=== PATIENT | male | born 1945 | race Caucasian/White ===

== ENCOUNTER → 2016-02-19 | Day surgery (SDC) | payer MEDICARE ==
[2016-02-16 14:37] VITALS: BMI 27.2
== END | disposition home or self-care (01) ==
LOC: ORWHC2ENDO 06:51
DX: D64.9 Anemia, unspecified (principal); K44.9 Diaphragmatic hernia without obstruction or gangrene; K29.70 Gastritis, unspecified, without bleeding; K29.80 Duodenitis without bleeding; K57.30 Diverticulosis of large intestine without perforation or abscess without bleeding
CPT/HCPCS: 91110

== ENCOUNTER → 2017-04-10 | Outpatient (CLI) | payer MEDICARE ==
[2017-04-10 15:00] LABS: Blood Urea Nitrogen 16 mg/dL (9-20)
--- NOTE | 2017-04-10 16:20 | CT ---
EXAMINATION TYPE: CT urogram wo/w con DATE OF EXAM: 04/10/2017 COMPARISON: NONE HISTORY: Patient complains of LLQ pain, frequent urination, and 2 recent episodes of gross hematuria. CT DLP: 3841 mGycm CONTRAST: Performed and without and with IV Contrast, patient injected with 100 mL of Visipaque 320. CT Urography was performed with unenhanced followed by enhanced images of the kidneys, ureters and ur inary bladder. Delayed images were obtained. 3d reconstruction was perfromed at a separate work sta tion. FINDINGS: KIDNEYS/BLADDER: The right kidney is absent. Right upper pole left pelvic calyceal calculus measures 9 mm. 4 mm calculus upper pole noted as well. Additional mid to upper pole calculus left kidney measu ring 6.8 mm. There is fullness of the left renal pelvis compatible with congenital or acquired left U PJ obstruction. The left ureter is of normal caliber. No distinct solid renal mass. Urinary bladder g rossly unremarkable. LUNG BASES-: No visible nodule. No infiltrate. LIVER/GB: No calcified gallstones. No solid space occupying hepatic lesion. Simple Cyst left hepat ic lobe measures 1.7 cm. Biliary tree is of normal caliber. PANCREAS: No inflammation. No distinct mass. SPLEEN: No splenic enlargement. No lesion seen. ADRENALS: No nodule. No thickening. BOWEL: There is a large fixed hiatal hernia. Normal appendix. Normal bowel caliber. No inflammation . GENITAL ORGANS: The prostate gland is enlarged and demonstrates lobulated extension into the base of the urinary bladder. LYMPH NODES: No greater than 1cm abdominal or pelvic lymph nodes are appreciated. AORTA: No significant abnormality. OSSEOUS STRUCTURES: No significant abnormality is seen. OTHER: No significant additional abnormality is seen. IMPRESSION: 1. Suspect left-sided congenital or acquired UPJ obstruction. Contrast is seen within the left ureter at 10 minutes. Nonobstructing nephrolithiasis. 2. Absence of the right kidney. 3. Large fixed hiatal hernia. 4. Prostate gland enlargement.
== END | disposition home or self-care (01) ==
LOC: RADCTMAIN 14:20
PROVIDERS: ATTEND Urology
DX: N20.0 Calculus of kidney (principal); K44.9 Diaphragmatic hernia without obstruction or gangrene; N40.0 Benign prostatic hyperplasia without lower urinary tract symptoms; Z90.5 Acquired absence of kidney
CPT/HCPCS: 82565; 84520; 74178; 36415; 74400; Q9967

== ENCOUNTER 2017-05-05 13:31 | Emergency (ER) | payer MEDICARE ==
[2017-05-05 13:46] VITALS: TEMP 98.5
[2017-05-05 16:10] LABS: Basophils % (A) 1 %; Eosinophils # (A) 0.1 k/uL (0-0.7); Eosinophils % (A) 1 %; HCT 45.8 % (39.0-53.0); HGB 14.9 gm/dL (13.0-17.5); Lymphocytes # (A) 0.8 k/uL (1.0-4.8); Lymphocytes % (A) 12 %; MCH 31.8 pg (25.0-35.0); MCHC 32.4 g/dL (31.0-37.0); MCV 98.1 fL (80.0-100.0); Mean Platelet Volume 7.4; Monocytes # (A) 0.4 k/uL (0-1.0); Monocytes % (A) 6 %; Neutrophils # (A) 5.2 k/uL (1.3-7.7); Neutrophils % (A) 79 %; Platelet Count 197 k/uL (150-450); RBC 4.67 m/uL (4.30-5.90); RDW 13.1 % (11.5-15.5); WBC 6.6 k/uL (3.8-10.6)
[2017-05-05 16:22] LABS: ALT 49 U/L (21-72); AST 34 U/L (17-59); Albumin 4.6 g/dL (3.5-5.0); Alkaline Phosphatase 121 U/L (38-126); Amylase 90 U/L (30-110); Anion Gap 16 mmol/L; Appearance,Urine Cloudy (Clear); Bacteria,Urine Rare /hpf; Bilirubin,Urine Negative (Negative); Blood Urea Nitrogen 15 mg/dL (9-20); Blood,Urine Moderate (Negative); Calcium 9.8 mg/dL (8.4-10.2); Carbon Dioxide 25 mmol/L (22-30); Chloride 103 mmol/L (98-107); Color,Urine Yellow; Glucose 94 mg/dL (74-99); Glucose,Urine (UA) Negative (Negative); Ketones,Urine Negative (Negative); Leukocyte Esterase,Urine Trace (Negative); Lipase 107 U/L (23-300); Mucus,Urine Occasional /hpf; Nitrite,Urine Negative (Negative); PH, Urine 5.5 (5.0-8.0); Protein,Urine 1+ (Negative); RBC,Urine >182 /hpf (0-5); Sodium 144 mmol/L (137-145); Specific Gravity,Urine 1.021 (1.001-1.035); Total Bilirubin 0.7 mg/dL (0.2-1.3); Total Protein 7.6 g/dL (6.3-8.2); Urobilinogen,Urine <2.0 mg/dL (<2.0); WBC,Urine 17 /hpf (0-5)
[2017-05-05] MEDS ORDERED: IOPAMIDOL-300 CONTRAST 30 ML VIAL (ORAL USE) PO PRN (17:19)
[2017-05-05] MEDS ORDERED: RX INFO: IV CONTRAST WAS GIVEN 1 EACH MISC MISCELLANE PRN (17:19)
[2017-05-05 17:31] VITALS: RESP 16
--- NOTE | 2017-05-05 17:41 | ED ---
Abdominal Pain HPI - General Chief Complaint: Abdominal Pain Stated Complaint: bowel obstruction-sent by PCP Time Seen by Provider: 05/05/17 16:43 Source: patient Mode of arrival: ambulatory Limitations: no limitations - History of Present Illness Initial Comments: 8-year-old male presenting with abdominal pain. Patient states for the past one month he has had left lower quadrant nonradiating intermittent abdominal pain. He states it is sporadic, is not alleviated or exacerbated by anything. Patient states he had some blood in his urine has been evaluated by urologist. He states he had a cystoscopy done which showed 2 areas in his bladder that need biopsy. He states the last week has been unable to have a bowel movement. He states he has seen his primary care physician for this and has tried MiraLAX and magnesium citrate without significant relief. Patient states he is still passing gas and able to tolerate by mouth without any emesis. Patient denies any fevers or chills. Denies any chest pain or shortness of breath. - Related Data Home Medications Medication Instructions Recorded Confirmed Fexofenadine HCl [Angela Allergy] 180 mg PO DAILY 12/14/13 05/05/17 Cholecalciferol [Vitamin D3] 1,000 unit PO DAILY 01/29/16 05/05/17 Metoprolol Tartrate [Lopressor] 12.5 mg PO BID 01/29/16 05/05/17 Ubidecarenone [Co Q-10] 100 mg PO HS 01/29/16 05/05/17 Clopidogrel Bisulfate [Plavix] 75 mg PO HS 05/05/17 05/05/17 Previous Rx's Medication Instructions Recorded Atorvastatin [Lipitor] 80 mg PO HS #30 tab 08/04/13 Lisinopril [Zestril] 2.5 mg PO DAILY #30 tab 08/04/13 Bisacodyl [Dulcolax] 10 mg RECTAL DAILY PRN #10 supp 05/05/17 MDD 1 Dicyclomine [Bentyl] 10 mg PO TID PRN #10 capsule 05/05/17 Allergies Allergy/AdvReac Type Severity Reaction Status Date / Time prednisone AdvReac Rapid Verified 05/05/17 16:39 Heart Rate HAYFEVER AdvReac NASAL Uncoded 05/05/17 13:46 CONGESTION Review of Systems ROS Statement: Those systems with pertinent positive or pertinent negative responses have been documented in the HPI. Review of Systems Constitutional: Denies fever, chills Eyes: Denies change in vision, Denies pain Ears, nose, mouth, throat: Denies headaches, Denies sore throat Cardiovascular: Denies chest pain. Denies palpitations Respiratory: Denies shortness of breath, Denies cough Gastrointestinal: Positive abdominal pain. Positive constipation. Denies nausea , vomiting, diarrhea. Genitourinary: Denies hematuria, Denies infections Musculoskeletal: Denies pain, Denies swelling Integumentary: Denies rash Neurological: Denies headache, focal weakness, focal numbness Psychiatric: Denies anxiety, Denies depression Hematologic/Lymphatic: Denies easy bleeding or bruising ROS Other: All systems not noted in ROS Statement are negative. Past Medical History Past Medical History: Coronary Artery Disease (CAD), Chest Pain / Angina, GERD/ Reflux, Hearing Disorder / Deafness, Hyperlipidemia, Hypertension, Myocardial Infarction ([place]) Additional Past Medical History / Comment(s): ANEMIA, SCOPES NL 09/2013. 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 Last Myocardial Infarction Date:: 07/31/2013 History of Any Multi-Drug Resistant Organisms: None Reported Past Surgical History: Heart Catheterization With Stent, Hernia Repair, Tonsillectomy Additional Past Surgical History / Comment(s): kidney removal - rt; COLONOSCOPY , EGD. Past Anesthesia/Blood Transfusion Reactions: No Reported Reaction Additional Past Anesthesia/Blood Transfusion Reaction / Comment(s): no h/x of blood transfusion Date of Last Stent Placement:: 09/2013 Past Psychological History: No Psychological Hx Reported Smoking Status: Never smoker Past Alcohol Use History: None Reported Past Drug Use History: None Reported - Past Family History Father Family Medical History: Myocardial Infarction ([place]) Additional Family Medical History / Comment(s): dad - late 50's early 60's cabg X 4; mom had left carotid done, silent [place]'s Mother Family Medical History: Chest Pain / Angina, CVA/TIA, Myocardial Infarction ([place]) General Exam - General Exam Comments Initial Comments: General: Awake, alert, No acute Distress HENT: Normocephalic. Atraumatic Eyes: PERRL. EOMI. No scleral icterus. No injected conjunctiva Neck: Full ROM Chest/Lungs: Clear to auscultation bilaterally. No wheezing, rhonchi, or rales Cardiac: Regular rate, rhythm. No murmurs or rubs. No abdominal bruit. Abdomen/GI: [Soft, nontender, nondistended. No rebound, guarding, or rigidity. Musculoskeletal: Full ROM Skin: Warm, dry, intact Neurologic: A/Ox3, no weakness, no sensory deficit, no abdnormal gait, no coordination deficit Limitations: no limitations Course Vital Signs 05/05/17 05/05/17 05/05/17 13:42 17:29 18:51 Temperature 98.5 F Pulse Rate 69 60 61 Respiratory 18 16 16 Rate Blood Pressure 145/83 144/81 153/78 O2 Sat by Pulse 96 98 98 Oximetry 05/05/17 19:21 Temperature Pulse Rate 66 Respiratory 16 Rate Blood Pressure 144/86 O2 Sat by Pulse 98 Oximetry Medical Decision Making - Medical Decision Making 71-year-old male presenting with abdominal pain and constipation. An initial exam the patient is awake, alert, no acute distress. VSS. Patient is well- appearing nontoxic in his abdomen is nontender and nonperitoneal. Patient's hematuria seen in his UA is consistent with his chronic hematuria for which she is seeing a urologist. He recently had a CT urogram which showed bilateral nephrolithiasis. He is currently not having any flank pain. [address] abdomen showed no evidence of obstruction, diverticulitis, or appendicitis. Patient is in no abdominal pain. At this time the patient is stable for outpatient follow up with his blood typer for his sensation of constipation. Patient was offered a duplex suppository prescription as well as Bentyl for her gas and bloating that he has been experiencing. No further emergent workup is indicated at this time. - Lab Data Result diagrams: 05/05/17 15:55 05/05/17 15:55 Lab Results 05/05/17 05/05/17 05/05/17 Range/Units 15:55 15:55 15:55 WBC 6.6 (3.8-10.6) k/uL RBC 4.67 (4.30-5.90) m/uL Hgb 14.9 (13.0-17.5) gm/dL Hct 45.8 (39.0-53.0) % MCV 98.1 (80.0-100.0) fL MCH 31.8 (25.0-35.0) pg MCHC 32.4 (31.0-37.0) g/dL RDW 13.1 (11.5-15.5) % Plt Count 197 (150-450) k/uL Neutrophils % 79 % Lymphocytes % 12 % Monocytes % 6 % Eosinophils % 1 % Basophils % 1 % Neutrophils # 5.2 (1.3-7.7) k/uL Lymphocytes # 0.8 L (1.0-4.8) k/uL Monocytes # 0.4 (0-1.0) k/uL Eosinophils # 0.1 (0-0.7) k/uL Basophils # 0.0 (0-0.2) k/uL Sodium 144 (137-145) mmol/L Potassium 5.0 (3.5-5.1) mmol/L Chloride 103 (98-107) mmol/L Carbon Dioxide 25 (22-30) mmol/L Anion Gap 16 mmol/L BUN 15 (9-20) mg/dL Creatinine 0.90 (0.66-1.25) mg/dL Est GFR (CKD-EPI)AfAm >90 (>60 ml/min/1.73 sqM) Est GFR (CKD-EPI)NonAf 86 (>60 ml/min/1.73 sqM) Glucose 94 (74-99) mg/dL Calcium 9.8 (8.4-10.2) mg/dL Total Bilirubin 0.7 (0.2-1.3) mg/dL AST 34 (17-59) U/L ALT 49 (21-72) U/L Alkaline Phosphatase 121 (38-126) U/L Total Protein 7.6 (6.3-8.2) g/dL Albumin 4.6 (3.5-5.0) g/dL Amylase 90 (30-110) U/L Lipase 107 (23-300) U/L Urine Color Yellow Urine Appearance Cloudy (Clear) Urine pH 5.5 (5.0-8.0) Ur Specific [place] 1.021 (1.001-1.035) Urine Protein 1+ H (Negative) Urine Glucose (UA) Negative (Negative) Urine Ketones Negative (Negative) Urine Blood Moderate H (Negative) Urine Nitrite Negative (Negative) Urine Bilirubin Negative (Negative) Urine Urobilinogen <2.0 (<2.0) mg/dL Ur Leukocyte Esterase Trace H (Negative) Urine RBC >182 H (0-5) /hpf Urine WBC 17 H (0-5) /hpf Urine Bacteria Rare H (None) /hpf Urine Mucus Occasional H (None) /hpf Disposition Clinical Impression: Constipation, Abdominal pain Disposition: HOME SELF-CARE Condition: Good Instructions: Abdominal Pain (ED), Constipation (ED), High Fiber Diet (ED) Prescriptions: Bisacodyl [Dulcolax] 10 mg RECTAL DAILY PRN #10 supp MDD 1 PRN Reason: Constipation Dicyclomine [Bentyl] 10 mg PO TID PRN #10 capsule PRN Reason: Bloating Referrals: Jimenez Small MD [Primary Care Provider] - 1-2 days
[2017-05-05 19:23] VITALS: BP 144/86; PULSE 66
--- NOTE | 2017-05-05 19:39 | CT ---
EXAMINATION TYPE: CT abdomen pelvis wo con DATE OF EXAM: 05/05/2017 COMPARISON: 04/10/2017 HISTORY: Generalized abdominal pain, constipation, and nausea. CT DLP: 1059 mGycm Automated exposure control for dose reduction was used. TECHNIQUE: Helical acquisition of images was performed from the lung bases through the pelvis. FINDINGS: There is oral contrast. There is a large hiatal hernia with fluid level. There is no pleural effusion . There is no pericardial effusion. There is atherosclerotic calcification in the coronary arteries. There is a 1 cm cyst in the left lobe of the liver. Bile ducts are not dilated. Gallbladder is somewh at contracted. There is no pancreatic mass. Spleen appears normal. There is no adrenal mass. Right kidney is absent. Left kidney shows multiple calculi. There is left-s ided hydronephrosis. Left ureter is not dilated. I see no ureteral calculus. Prostate is enlarged. Bl adder otherwise distends smoothly. I see no intestinal wall thickening. There are no dilated loops. A ppendix appears normal. There are a few sigmoid diverticula. There is no evidence of diverticulitis. There is no sign of free air. There is no ascites. I see no bony destructive process. There is bilate ral L5 spondylolysis without spondylolisthesis. There is a 1 cm calculus in the posterior left renal pelvis. IMPRESSION: CHRONIC LEFT-SIDED HYDRONEPHROSIS WITHOUT CHANGE COMPARED TO LAST EXAM. I DO NOT SUSPECT OBSTRUCTION. MULTIPLE LEFT RENAL CALCULI. NORMAL APPENDIX. LARGE HIATAL HERNIA. MILD SIGMOID DIVERTICULOSIS. ENLA RGED PROSTATE. NO SIGNIFICANT CHANGE COMPARED TO OLD EXAM.
== END 2017-05-05 20:10 | disposition home or self-care (01) ==
LOC: EC 13:31
DX: K59.00 Constipation, unspecified (principal); N20.0 Calculus of kidney; I25.10 Atherosclerotic heart disease of native coronary artery without angina pectoris; H91.90 Unspecified hearing loss, unspecified ear; E78.5 Hyperlipidemia, unspecified; I10 Essential (primary) hypertension; I25.2 Old myocardial infarction; Z79.02 Long term (current) use of antithrombotics/antiplatelets; Z79.899 Other long term (current) drug therapy; Z88.8 Allergy status to other drugs, medicaments and biological substances
CPT/HCPCS: 36415; 74176; 80053; 81001; 82150; 83690; 85025; 99284

== ENCOUNTER → 2017-05-30 | Outpatient (CLI) | payer MEDICARE ==
--- NOTE | 2017-05-30 15:13 | XR ---
EXAMINATION TYPE: XR abdomen 1V DATE OF EXAM: 05/30/2017 2:59 PM CLINICAL HISTORY: Left-sided renal calculi, gross hematuria. TECHNIQUE: Two supine KUB images of the abdomen are obtained. COMPARISON: Most recent CT May 05, 2017 FINDINGS: There is redemonstration of round 8 mm calculus centrally left kidney correlates with colle cting system calculus on CT. There is smaller 3 mm calculus superior and lateral to this redemonstrat ed. Additional [address] upper pole level coronal image 66 is not clearly identified. Right kidney is not visualized on CT and is either surgically or congenitally absent. Lobulated density ri ght L4-L5 levels is of uncertain etiology, not clearly identified on CT. There is overall nonobstructive bowel gas pattern. Mild to moderate axial joint space loss in both hi ps is redemonstrated. IMPRESSION: Stable round 8 mm calculus left kidney collecting system.
== END ==
LOC: RADXRMAIN 14:51
PROVIDERS: ATTEND Urology
DX: N20.0 Calculus of kidney (principal); R31.0 Gross hematuria
CPT/HCPCS: 74018

== ENCOUNTER → 2018-09-17 | Outpatient (CLI) | payer MEDICARE ==
--- NOTE | 2018-09-17 14:22 | US ---
EXAMINATION TYPE: US carotid duplex BILAT DATE OF EXAM: 09/17/2018 COMPARISON: NONE CLINICAL HISTORY: I65.23 MICHAEL CAROTID ARTERY OCCLUSION. Stenosis EXAM MEASUREMENTS: RIGHT: Peak Systolic Velocity (PSV) cm/sec ----- Right CCA: 76.4 ----- Right ICA: 82.6 ----- Right ECA: 108.6 ICA/CCA ratio: 1.1 RIGHT: End Diastole cm/sec ----- Right CCA: 22.3 ----- Right ICA: 25.0 ----- Right ECA: 16.2 LEFT: Peak Systolic Velocity (PSV) cm/sec ----- Left CCA: 106.1 ----- Left ICA: 97.3 ----- Left ECA: 95.7 ICA/CCA ratio: 0.9 LEFT: End Diastole cm/sec ----- Left CCA: 29.9 ----- Left ICA: 29.4 ----- Left ECA: 12.3 VERTEBRALS (direction of flow): Right Vertebral: Antegrade Left Vertebral: Antegrade Rhythm: Normal Grayscale images show no significant focal plaque. Velocity measurements and ratios are within normal limits bilaterally. IMPRESSION: No hemodynamically significant stenosis is seen in either internal carotid artery. Criteria for Assigning % of Stenosis / Diameter reduction (Estimation based on the indirect measurements of the internal carotid artery velocities (ICA PSV). 1. Normal (no stenosis)=ICA PSV < 125 cm/s: ratio < 2.0: ICA EDV<40 cm/s. 2. Less than 50% stenosis=ICA PSV < 125 cm/s: ratio < 2.0: ICA EDV<40 cm/s. 3. 50 to 69% stenosis=ICA PSV of 125 to 230 cm/s: ration 2.0 ? 4.0: ICA EDV 40-100 cm/s. 4. Greater than 70% stenosis to near occlusion= ICA PSV > 230 cm/s: ratio > 4.0: ICA EDV > 100 cm/s. 5. Near occlusion= ICA PSV velocities may be low or undetectable: variable ratio and ICA EDV. 6. Total occlusion=unable to detect flow.
== END | disposition home or self-care (01) ==
LOC: RADUSWWP 13:37
PROVIDERS: ATTEND Family Medicine
DX: I65.23 Occlusion and stenosis of bilateral carotid arteries (principal)
CPT/HCPCS: 93880

== ENCOUNTER → 2019-06-24 | Outpatient (CLI) | payer MEDICARE ==
--- NOTE | 2019-06-24 09:32 | US ---
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 History of bladder cancer, righ t kidney surgically absent x70 years ago EXAM MEASUREMENTS: Right Kidney: Surgically absent Left Kidney: 13.2 x 6.3 x 5.7 cm Right Kidney: Surgically absent Left Kidney: There is left nephrolithiasis. Probable extrarenal pelvis on the left versus UPJ partial obstruction. Echogenic foci measuring 0.6 cm upper pole Bladder: wnl as visualized Bilateral Jets seen: No IMPRESSION: Single kidney. Left nephrolithiasis and additional findings above.
== END | disposition home or self-care (01) ==
LOC: RADUSWWP 08:25
PROVIDERS: ATTEND Urology
DX: N20.0 Calculus of kidney (principal); Z90.5 Acquired absence of kidney; C67.2 Malignant neoplasm of lateral wall of bladder; R31.21 Asymptomatic microscopic hematuria
CPT/HCPCS: 76770

== ENCOUNTER 2019-11-24 12:37 | Emergency (ER) | payer MEDICARE ==
[2019-11-24 12:47] VITALS: PULSE 61; TEMP 98.4
--- NOTE | 2019-11-24 12:56 | ED ---
Abdominal Pain HPI - General Chief Complaint: Abdominal Pain Stated Complaint: DR Requested to be seen in EMS Time Seen by Provider: 11/24/19 12:55 Source: patient Mode of arrival: ambulatory Limitations: no limitations - History of Present Illness Initial Comments: Patient is a 74-year-old male presenting to emergency department with a chief complaint of constipation. Patient states he has been having constipation for approximately one month. States she has been having very tiny bowel movements. He does report some abdominal bloating. He is passing flatus period. He does report taking magnesium citrate it was prescribed a primary care physician. He also took MiraLAX with no improvement in symptoms. States that he was advised by his primary care physician today be evaluated in the emergency department.. He denies any night sweats or chills. Denies any nausea or vomiting. - Related Data Home Medications Medication Instructions Recorded Confirmed Fexofenadine HCl [Angela Allergy] 180 mg PO DAILY 12/14/13 05/05/17 Cholecalciferol [Vitamin D3] 1,000 unit PO DAILY 01/29/16 05/05/17 Metoprolol Tartrate [Lopressor] 12.5 mg PO BID 01/29/16 05/05/17 Ubidecarenone [Co Q-10] 100 mg PO HS 01/29/16 05/05/17 Clopidogrel Bisulfate [Plavix] 75 mg PO HS 05/05/17 05/05/17 Previous Rx's Medication Instructions Recorded Atorvastatin [Lipitor] 80 mg PO HS #30 tab 08/04/13 lisinopriL [Zestril] 2.5 mg PO DAILY #30 tab 08/04/13 Dicyclomine [Bentyl] 10 mg PO TID PRN #10 capsule 05/05/17 bisacodyL [Dulcolax] 10 mg RECTAL DAILY PRN #10 supp 05/05/17 MDD 1 Allergies Allergy/AdvReac Type Severity Reaction Status Date / Time prednisone AdvReac Rapid Verified 05/05/17 16:39 Heart Rate HAYFEVER AdvReac NASAL Uncoded 05/05/17 13:46 CONGESTION Review of Systems ROS Statement: Those systems with pertinent positive or pertinent negative responses have been documented in the HPI. ROS Other: All systems not noted in ROS Statement are negative. Past Medical History Past Medical History: Coronary Artery Disease (CAD), Cancer, Chest Pain / Angina, GERD/Reflux, Hearing Disorder / Deafness, Hyperlipidemia, Hypertension, Myocardial Infarction ([place]) Additional Past Medical History / Comment(s): ANEMIA, SCOPES NL 09/2013. hiatal hernia; hard of hearing; right kidney removed at age 22 months; [place] 07/31/13; cardiac stents X2 placed 07/31/13, X3 09/2013; KIDNEY STONES. Bladder CA 2018 Last Myocardial Infarction Date:: 07/31/2013 History of Any Multi-Drug Resistant Organisms: None Reported Past Surgical History: Heart Catheterization With Stent, Hernia Repair, Tonsillectomy Additional Past Surgical History / Comment(s): kidney removal - rt at 22 months old; COLONOSCOPY, EGD. Past Anesthesia/Blood Transfusion Reactions: No Reported Reaction Additional Past Anesthesia/Blood Transfusion Reaction / Comment(s): no h/x of blood transfusion Date of Last Stent Placement:: 09/2013 Past Psychological History: No Psychological Hx Reported Smoking Status: Never smoker Past Alcohol Use History: None Reported Past Drug Use History: None Reported - Past Family History Father Family Medical History: Myocardial Infarction ([place]) Additional Family Medical History / Comment(s): dad - late 50's early 60's cabg X 4; mom had left carotid done, silent CT's Mother Family Medical History: Chest Pain / Angina, CVA/TIA, Myocardial Infarction ([place]) General Exam Limitations: no limitations General appearance: alert, in no apparent distress Head exam: Present: atraumatic, normocephalic, normal inspection Eye exam: Present: normal appearance, PERRL, EOMI Pupils: Present: normal accommodation ENT exam: Present: normal exam, normal oropharynx, mucous membranes moist Neck exam: Present: normal inspection, full ROM. Absent: tenderness Respiratory exam: Present: normal lung sounds bilaterally. Absent: respiratory distress, wheezes, rales Cardiovascular Exam: Present: regular rate, normal rhythm, normal heart sounds GI/Abdominal exam: Present: soft, tenderness (Mild, diffuse), normal bowel sounds. Absent: distended, guarding, rebound, rigid Extremities exam: Present: normal inspection, full ROM, normal capillary refill, other (+2 ulnar and radial pulses bilaterally.). Absent: tenderness, pedal edema, joint swelling, calf tenderness Back exam: Present: normal inspection, full ROM. Absent: tenderness, CVA tenderness (R), CVA tenderness (L) Neurological exam: Present: alert, oriented X3, normal gait Psychiatric exam: Present: normal affect, normal mood Skin exam: Present: warm, dry, intact, normal color Course Vital Signs 11/24/19 11/24/19 12:41 16:08 Temperature 98.4 F Pulse Rate 61 61 Respiratory 18 16 Rate Blood Pressure 142/80 124/74 O2 Sat by Pulse 98 99 Oximetry Medical Decision Making - Medical Decision Making Patient is 74-year-old male presenting to emergency Department with a chief complaint of constipation. On physical examination, patient has minimal abdominal tenderness. No nausea or vomiting. CBC CMP UA are unremarkable. KUB reveals nonspecific gas pattern with normal stool [place]. Patient was given milk of molasses enema. He had a moderate size bowel movement and states he does feel better. Strict return parameters were thoroughly discussed the patient was understanding and agreeable. Case discussed with physician. - Lab Data Result diagrams: 11/24/19 13:32 11/24/19 13:32 Lab Results 11/24/19 11/24/19 11/24/19 Range/Units 13:32 13:32 14:08 WBC 5.3 (3.8-10.6) k/uL RBC 4.15 L (4.30-5.90) m/uL Hgb 14.2 (13.0-17.5) gm/dL Hct 42.4 (39.0-53.0) % MCV 102.2 H (80.0-100.0) fL MCH 34.3 (25.0-35.0) pg MCHC 33.6 (31.0-37.0) g/dL RDW 13.2 (11.5-15.5) % Plt Count 199 (150-450) k/uL Neutrophils % 81 % Lymphocytes % 11 % Monocytes % 5 % Eosinophils % 1 % Basophils % 1 % Neutrophils # 4.3 (1.3-7.7) k/uL Lymphocytes # 0.6 L (1.0-4.8) k/uL Monocytes # 0.3 (0-1.0) k/uL Eosinophils # 0.1 (0-0.7) k/uL Basophils # 0.0 (0-0.2) k/uL Macrocytosis Slight Sodium 139 (137-145) mmol/L Potassium 4.4 (3.5-5.1) mmol/L Chloride 107 (98-107) mmol/L Carbon Dioxide 24 (22-30) mmol/L Anion Gap 8 mmol/L BUN 9 (9-20) mg/dL Creatinine 0.89 (0.66-1.25) mg/dL Est GFR (CKD-EPI)AfAm >90 (>60 ml/min/1.73 sqM) Est GFR (CKD-EPI)NonAf 85 (>60 ml/min/1.73 sqM) Glucose 152 H (74-99) mg/dL Calcium 9.1 (8.4-10.2) mg/dL Total Bilirubin 0.6 (0.2-1.3) mg/dL AST 24 (17-59) U/L ALT 18 (4-49) U/L Alkaline Phosphatase 114 (38-126) U/L Total Protein 7.0 (6.3-8.2) g/dL Albumin 4.1 (3.5-5.0) g/dL Urine Color Yellow Urine Appearance Clear (Clear) Urine pH 6.0 (5.0-8.0) Ur Specific [place] 1.019 (1.001-1.035) Urine Protein Negative (Negative) Urine Glucose (UA) Negative (Negative) Urine Ketones Negative (Negative) Urine Blood Negative (Negative) Urine Nitrite Negative (Negative) Urine Bilirubin Negative (Negative) Urine Urobilinogen 2.0 (<2.0) mg/dL Ur Leukocyte Esterase Negative (Negative) Disposition Clinical Impression: Constipation Disposition: HOME SELF-CARE Condition: Stable Instructions (If sedation given, give patient instructions): Constipation (DC) Additional Instructions: Follow-up with her primary care physician. Return to emergency department if symptoms worsen. Continue your appointment with a GI specialist. Is patient prescribed a controlled substance at d/c from ED?: No Referrals: Jimenez Small MD [Primary Care Provider] - 1-2 days Time of Disposition: 16:18
[2019-11-24] MEDS ORDERED: SODIUM CHLORIDE 0.9% 1,000 ML IV STA (12:59)
[2019-11-24 13:43] LABS: Basophils % (A) 1 %; Eosinophils # (A) 0.1 k/uL (0-0.7); Eosinophils % (A) 1 %; HCT 42.4 % (39.0-53.0); HGB 14.2 gm/dL (13.0-17.5); Lymphocytes # (A) 0.6 k/uL (1.0-4.8); Lymphocytes % (A) 11 %; MCH 34.3 pg (25.0-35.0); MCHC 33.6 g/dL (31.0-37.0); MCV 102.2 fL (80.0-100.0); Macrocytosis Slight; Monocytes # (A) 0.3 k/uL (0-1.0); Monocytes % (A) 5 %; Neutrophils # (A) 4.3 k/uL (1.3-7.7); Neutrophils % (A) 81 %; Platelet Count 199 k/uL (150-450); RBC 4.15 m/uL (4.30-5.90); RDW 13.2 % (11.5-15.5); WBC 5.3 k/uL (3.8-10.6)
[2019-11-24 13:52] LABS: ALT 18 U/L (4-49); AST 24 U/L (17-59); African American GFR (CKD) >90 (>60 ml/min/1.73 sqM); Albumin 4.1 g/dL (3.5-5.0); Alkaline Phosphatase 114 U/L (38-126); Anion Gap 8 mmol/L; Blood Urea Nitrogen 9 mg/dL (9-20); Calcium 9.1 mg/dL (8.4-10.2); Carbon Dioxide 24 mmol/L (22-30); Chloride 107 mmol/L (98-107); Glucose 152 mg/dL (74-99); Non-African American GFR(CKD) 85 (>60 ml/min/1.73 sqM); Potassium 4.4 mmol/L (3.5-5.1); Sodium 139 mmol/L (137-145); Total Bilirubin 0.6 mg/dL (0.2-1.3)
--- NOTE | 2019-11-24 13:54 | XR ---
EXAMINATION TYPE: XR KUB DATE OF EXAM: 11/24/2019 1:40 PM CLINICAL HISTORY: Abdominal pain and constipation TECHNIQUE: Upright images of the abdomen and pelvis were obtained COMPARISON: 11/02/[address] abdomen pelvis 05/05/2017. FINDINGS: Nonspecific bowel gas pattern. Normal stool burden. Hiatal hernia. No pneumoperitoneum or v isceromegaly. There are calcifications overlying the left renal lower pole measuring 14 x 15 mm and 1 4 x 7 mm. Degenerative changes of the spine. IMPRESSION: 1. Nonspecific bowel gas pattern. Normal stool burden. 2. Hiatal hernia. 3. Left renal calculi.
[2019-11-24 14:24] LABS: Appearance,Urine Clear (Clear); Bilirubin,Urine Negative (Negative); Blood,Urine Negative (Negative); Color,Urine Yellow; Glucose,Urine (UA) Negative (Negative); Ketones,Urine Negative (Negative); Leukocyte Esterase,Urine Negative (Negative); Nitrite,Urine Negative (Negative); Protein,Urine Negative (Negative); Specific Gravity,Urine 1.019 (1.001-1.035)
[2019-11-24 16:08] VITALS: BP 124/74; RESP 16
== END 2019-11-24 16:39 | disposition home or self-care (01) ==
LOC: EC 12:37
DX: K59.00 Constipation, unspecified (principal); I25.119 Atherosclerotic heart disease of native coronary artery with unspecified angina pectoris; I10 Essential (primary) hypertension; I25.2 Old myocardial infarction; Z79.899 Other long term (current) drug therapy; Z79.02 Long term (current) use of antithrombotics/antiplatelets; Z88.8 Allergy status to other drugs, medicaments and biological substances; Z91.048 Other nonmedicinal substance allergy status; Z95.5 Presence of coronary angioplasty implant and graft; Z85.51 Personal history of malignant neoplasm of bladder
CPT/HCPCS: 36415; 74018; 80053; 81003; 85025; 96360; 96361; 99284

== ENCOUNTER 2019-11-26 18:33 | Emergency (ER) | payer MEDICARE ==
[2019-11-26] MEDS ORDERED: SODIUM CHLORIDE 0.9% 500 ML 500 ML IV ONE (19:37)
--- NOTE | 2019-11-26 20:04 | ED ---
General Adult HPI - General Chief complaint: Abdominal Pain Stated complaint: Abd issues Time Seen by Provider: 11/26/19 19:06 Source: patient, RN notes reviewed, old records reviewed Mode of arrival: wheelchair Limitations: no limitations - History of Present Illness Initial comments: 74-year-old male patient presents to ED for evaluation of constipation and abdominal pain on-and-off for the last 2 months. Patient does have solitary kidney. Patient reports that he does emergency department on the . Reports that he was given an enema and then took magnesium citrate next day was feeling great states that today however he woke up feeling poorly left lower quadrant abdominal pain waxing and waning nausea a few small episodes of vomiting. Denies any chest pain or shortness of breath. Denies any other acute complaints. Systemic: Pt denies fatigue, fever/chills, rash. Pt denies weakness, night sweats, weight loss. Neuro: Pt denies headache, visual disturbances, syncope or pre-syncope. HEENT: Pt denies ocular discharge or irritation, otalgia, rhinorrhea, pharyngitis or notable lymphadenopathy. Cardiopulmonary: Pt denies chest pain, SOB, heart palpitations, dyspnea on exertion. Abdominal/GI: Pt denies n/v/d. : Pt denies dysuria, burning w/ urination, frequency/urgency. Denies new onset urinary or bowel incontinence. MSK: Pt denies myalgia, loss of strength or function in extremities. Neuro: Pt denies new onset weakness, paresthesias. - Related Data Home Medications Medication Instructions Recorded Confirmed Fexofenadine HCl [Angela Allergy] 180 mg PO DAILY 12/14/13 05/05/17 Cholecalciferol [Vitamin D3] 1,000 unit PO DAILY 01/29/16 05/05/17 Metoprolol Tartrate [Lopressor] 12.5 mg PO BID 01/29/16 05/05/17 Ubidecarenone [Co Q-10] 100 mg PO HS 01/29/16 05/05/17 Clopidogrel Bisulfate [Plavix] 75 mg PO HS 05/05/17 05/05/17 Previous Rx's Medication Instructions Recorded Atorvastatin [Lipitor] 80 mg PO HS #30 tab 08/04/13 lisinopriL [Zestril] 2.5 mg PO DAILY #30 tab 08/04/13 Dicyclomine [Bentyl] 10 mg PO TID PRN #10 capsule 05/05/17 bisacodyL [Dulcolax] 10 mg RECTAL DAILY PRN #10 supp 05/05/17 MDD 1 Allergies Allergy/AdvReac Type Severity Reaction Status Date / Time prednisone AdvReac Rapid Verified 11/26/19 18:41 Heart Rate HAYFEVER AdvReac NASAL Uncoded 11/26/19 18:41 CONGESTION Review of Systems ROS Statement: Those systems with pertinent positive or pertinent negative responses have been documented in the HPI. ROS Other: All systems not noted in ROS Statement are negative. Past Medical History Past Medical History: Coronary Artery Disease (CAD), Cancer, Chest Pain / Angina, GERD/Reflux, Hearing Disorder / Deafness, Hyperlipidemia, Hypertension, Myocardial Infarction ([place]) Additional Past Medical History / Comment(s): ANEMIA, SCOPES NL 09/2013. hiatal hernia; hard of hearing; right kidney removed at age 22 months; [place] 07/31/13; cardiac stents X2 placed 07/31/13, X3 09/2013; KIDNEY STONES. Bladder CA 2018 Last Myocardial Infarction Date:: 07/31/2013 History of Any Multi-Drug Resistant Organisms: None Reported Past Surgical History: Heart Catheterization With Stent, Hernia Repair, Tonsillectomy Additional Past Surgical History / Comment(s): kidney removal - rt at 22 months old; COLONOSCOPY, EGD. Past Anesthesia/Blood Transfusion Reactions: No Reported Reaction Additional Past Anesthesia/Blood Transfusion Reaction / Comment(s): no h/x of blood transfusion Date of Last Stent Placement:: 09/2013 Past Psychological History: No Psychological Hx Reported Smoking Status: Never smoker Past Alcohol Use History: None Reported Past Drug Use History: None Reported - Past Family History Father Family Medical History: Myocardial Infarction ([place]) Additional Family Medical History / Comment(s): dad - late 50's early 60's cabg X 4; mom had left carotid done, silent ME's Mother Family Medical History: Chest Pain / Angina, CVA/TIA, Myocardial Infarction ([place]) General Exam - General Exam Comments Initial Comments: Constitutional: NAD, AOX3, Pt has pleasant affect. HEENT: NC/AT, trachea midline, neck supple, no lymphadenopathy. External ears appear normal, without discharge. Mucous membranes moist. Eyes PERRLA, EOM intact. There is no scleral icterus. No pallor noted. Cardiopulmonary: RRR, no murmurs, rubs or gallops, no JVD noted. Lungs CTAB in anterior and posterior muniz. No peripheral edema. Abdominal exam: Abdomen soft and non-distended. Abdomen non-tender to palpation in all 4 quadrants. Bowel sounds active in LLQ. No hepatosplenomegaly. No ecchymosis Neuro: CN II-XII grossly intact. No nuchal rigidity. No raccon eyes, no sanchez sign, no hemotympanum. No cervical spinal tenderness. MSK: Full active ROM in upper and lower extremities, 5/5 stregnth. Limitations: no limitations Course Vital Signs 11/26/19 11/26/19 18:37 22:45 Temperature 98.3 F 98.8 F Pulse Rate 62 60 Respiratory 20 18 Rate Blood Pressure 155/79 144/88 O2 Sat by Pulse 99 98 Oximetry Medical Decision Making - Medical Decision Making 74-year-old male patient presents to ED complaining of waxing and waning left lower quadrant pain nausea constipation issues going on for the last 2 months. Patient will signs stable physical exam is fully nontender abdomen. Over investigations are unremarkable. Patient has a solitary kidney noncontrast study was obtained with surgery decision making. This displayed left-sided hydronephrosis and multiple left-sided renal calculi no obstructive calculi seen. Normal appendix intrathoracic stomach. Patient aware of these findings. EKG is performed which was nonischemic. Patient was discharged with outpatient GI and PCP follow-up and return to ER with any worsening symptoms. Case discussed with Dr. Bettencourt. - Lab Data Result diagrams: 11/26/19 20:13 11/26/19 20:13 Lab Results 11/26/19 11/26/19 11/26/19 Range/Units 20:13 20:13 20:13 WBC 5.7 (3.8-10.6) k/uL RBC 4.29 L (4.30-5.90) m/uL Hgb 14.1 (13.0-17.5) gm/dL Hct 44.4 (39.0-53.0) % MCV 103.4 H (80.0-100.0) fL MCH 32.9 (25.0-35.0) pg MCHC 31.8 (31.0-37.0) g/dL RDW 13.8 (11.5-15.5) % Plt Count 222 (150-450) k/uL Neutrophils % 72 % Lymphocytes % 15 % Monocytes % 9 % Eosinophils % 1 % Basophils % 0 % Neutrophils # 4.1 (1.3-7.7) k/uL Lymphocytes # 0.9 L (1.0-4.8) k/uL Monocytes # 0.5 (0-1.0) k/uL Eosinophils # 0.1 (0-0.7) k/uL Basophils # 0.0 (0-0.2) k/uL Macrocytosis Slight Sodium 139 (137-145) mmol/L Potassium 4.9 (3.5-5.1) mmol/L Chloride 106 (98-107) mmol/L Carbon Dioxide 26 (22-30) mmol/L Anion Gap 7 mmol/L BUN 9 (9-20) mg/dL Creatinine 0.93 (0.66-1.25) mg/dL Est GFR (CKD-EPI)AfAm >90 (>60 ml/min/1.73 sqM) Est GFR (CKD-EPI)NonAf 81 (>60 ml/min/1.73 sqM) Glucose 93 (74-99) mg/dL Plasma Lactic Acid Hal 1.5 (0.7-2.0) mmol/L Calcium 9.1 (8.4-10.2) mg/dL Total Bilirubin 0.7 (0.2-1.3) mg/dL AST 30 (17-59) U/L ALT 17 (4-49) U/L Alkaline Phosphatase 101 (38-126) U/L Troponin I (0.000-0.034) ng/mL Total Protein 7.4 (6.3-8.2) g/dL Albumin 4.3 (3.5-5.0) g/dL 11/26/19 Range/Units 20:13 WBC (3.8-10.6) k/uL RBC (4.30-5.90) m/uL Hgb (13.0-17.5) gm/dL Hct (39.0-53.0) % MCV (80.0-100.0) fL MCH (25.0-35.0) pg MCHC (31.0-37.0) g/dL RDW (11.5-15.5) % Plt Count (150-450) k/uL Neutrophils % % Lymphocytes % % Monocytes % % Eosinophils % % Basophils % % Neutrophils # (1.3-7.7) k/uL Lymphocytes # (1.0-4.8) k/uL Monocytes # (0-1.0) k/uL Eosinophils # (0-0.7) k/uL Basophils # (0-0.2) k/uL Macrocytosis Sodium (137-145) mmol/L Potassium (3.5-5.1) mmol/L Chloride (98-107) mmol/L Carbon Dioxide (22-30) mmol/L Anion Gap mmol/L BUN (9-20) mg/dL Creatinine (0.66-1.25) mg/dL Est GFR (CKD-EPI)AfAm (>60 ml/min/1.73 sqM) Est GFR (CKD-EPI)NonAf (>60 ml/min/1.73 sqM) Glucose (74-99) mg/dL Plasma Lactic Acid Hal (0.7-2.0) mmol/L Calcium (8.4-10.2) mg/dL Total Bilirubin (0.2-1.3) mg/dL AST (17-59) U/L ALT (4-49) U/L Alkaline Phosphatase (38-126) U/L Troponin I <0.012 (0.000-0.034) ng/mL Total Protein (6.3-8.2) g/dL Albumin (3.5-5.0) g/dL - EKG Data -: EKG Interpreted by Me (and Dr. Bettencourt ) EKG Comments: Ventricular rate 55, painful to 12, QRS 96, QT/QTc 434/4:15. Sinus bradycardia with first degree AV block. Otherwise normal EKG. No concern for acute ischemia at this time. Disposition Clinical Impression: Abdominal pain Disposition: HOME SELF-CARE Condition: Stable Instructions (If sedation given, give patient instructions): Abdominal Pain (ED) Additional Instructions: follow-up with primary care provider and wellness program administrator tomorrow. May use Zofran for nausea. Return to ER if any worsening symptoms. Is patient prescribed a controlled substance at d/c from ED?: No Referrals: Jimenez Small MD [Primary Care Provider] - 1-2 days Marjan Vázquez MD [STAFF PHYSICIAN] - 1-2 days
--- NOTE | 2019-11-26 20:24 | CT ---
EXAMINATION TYPE: CT abdomen pelvis wo con DATE OF EXAM: 11/26/2019 COMPARISON: 05/05/2017 HISTORY: flank pain, hx of diverticulitis CT DLP: 645.6 mGycm Automated exposure control for dose reduction was used. Images were obtained from the diaphragm to the floor the pelvis with no contrast. FINDINGS: Lung bases are clear of consolidation. There is large hiatal hernia with intrathoracic stomach. Heart size is normal. There is no pericardial effusion. Liver shows a 2 cm cyst in the left lobe.. The spl een is intact. There is no evidence of pancreatic mass. Gallbladder appears normal. The bile ducts ar e not dilated. There is no adrenal mass. Left kidney shows hydronephrosis. There are multiple calculi in the left ki dney. There is 1.5 cm calculus in the dependent dilated left renal pelvis. The left ureter is not dil ated. Bladder distends smoothly. The right kidney is absent. There is coronary artery calcification. There is no retroperitoneal adenopathy. There is no ascites or free air. There is no bowel obstructio n. Appendix is posterior and appears normal. There is no mesenteric edema. The bladder distends leland hly. Prostate is enlarged and measures 6 cm. There is no inguinal hernia. There is no free fluid in t he pelvis. Lumbar vertebra have normal alignment. Disc spaces are normal. There is L5 spondylolysis without spon dylolisthesis. There is no compression fracture. Bony pelvis is intact. Hip joints are intact. IMPRESSION: Left-sided hydronephrosis with multiple left-sided renal calculi. No obstructing calculus seen. Calcu li appear slightly increased in size compared to old exam. Normal appendix. Intrathoracic stomach.
[2019-11-26 20:42] LABS: ALT 17 U/L (4-49); AST 30 U/L (17-59); African American GFR (CKD) >90 (>60 ml/min/1.73 sqM); Albumin 4.3 g/dL (3.5-5.0); Alkaline Phosphatase 101 U/L (38-126); Anion Gap 7 mmol/L; Blood Urea Nitrogen 9 mg/dL (9-20); Calcium 9.1 mg/dL (8.4-10.2); Carbon Dioxide 26 mmol/L (22-30); Chloride 106 mmol/L (98-107); Glucose 93 mg/dL (74-99); Non-African American GFR(CKD) 81 (>60 ml/min/1.73 sqM); Potassium 4.9 mmol/L (3.5-5.1); Sodium 139 mmol/L (137-145); Total Bilirubin 0.7 mg/dL (0.2-1.3); Total Protein 7.4 g/dL (6.3-8.2)
[2019-11-26 20:49] LABS: Basophils % (A) 0 %; Eosinophils # (A) 0.1 k/uL (0-0.7); Eosinophils % (A) 1 %; HCT 44.4 % (39.0-53.0); HGB 14.1 gm/dL (13.0-17.5); Lymphocytes # (A) 0.9 k/uL (1.0-4.8); Lymphocytes % (A) 15 %; MCH 32.9 pg (25.0-35.0); MCHC 31.8 g/dL (31.0-37.0); MCV 103.4 fL (80.0-100.0); Macrocytosis Slight; Mean Platelet Volume 8.7; Monocytes # (A) 0.5 k/uL (0-1.0); Monocytes % (A) 9 %; Neutrophils # (A) 4.1 k/uL (1.3-7.7); Neutrophils % (A) 72 %; Platelet Count 222 k/uL (150-450); RBC 4.29 m/uL (4.30-5.90); RDW 13.8 % (11.5-15.5); WBC 5.7 k/uL (3.8-10.6)
[2019-11-26] MEDS ORDERED: ONDANSETRON 4 MG ODT STARTER PACK 2 TAB BTL PO STA (22:17)
[2019-11-26 22:46] VITALS: BP 144/88; PULSE 60; RESP 18; TEMP 98.8
== END 2019-11-26 22:46 | disposition home or self-care (01) ==
LOC: EC 18:33
DX: N13.2 Hydronephrosis with renal and ureteral calculous obstruction (principal); K59.00 Constipation, unspecified; I10 Essential (primary) hypertension; I25.119 Atherosclerotic heart disease of native coronary artery with unspecified angina pectoris; H91.90 Unspecified hearing loss, unspecified ear; I25.2 Old myocardial infarction; Z79.899 Other long term (current) drug therapy; Z79.02 Long term (current) use of antithrombotics/antiplatelets; Z88.8 Allergy status to other drugs, medicaments and biological substances; Z85.51 Personal history of malignant neoplasm of bladder; Z87.442 Personal history of urinary calculi; Z90.5 Acquired absence of kidney
CPT/HCPCS: 93005; 80053; 83605; 84484; 85025; 74176; 99285; 96360; 96361 ×2; S0119

== ENCOUNTER 2020-12-21 09:29 | Emergency (ER) | payer MEDICARE, OTHER ==
[2020-12-21] MEDS ORDERED: IBUPROFEN 600 MG TAB PO STA (10:31)
[2020-12-21] MEDS ORDERED: CYCLOBENZAPRINE 10 MG TAB PO STA (10:32)
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
[2020-12-21 13:17] VITALS: BP 130/77; PULSE 61; RESP 16; TEMP 98.1
== END 2020-12-21 13:16 | disposition home or self-care (01) ==
LOC: EC 09:29
DX: S20.212A Contusion of left front wall of thorax, initial encounter (principal); I10 Essential (primary) hypertension; I25.10 Atherosclerotic heart disease of native coronary artery without angina pectoris; I25.2 Old myocardial infarction; E78.5 Hyperlipidemia, unspecified; K21.9 Gastro-esophageal reflux disease without esophagitis; Z79.899 Other long term (current) drug therapy; Z85.51 Personal history of malignant neoplasm of bladder; Z88.8 Allergy status to other drugs, medicaments and biological substances; Z95.5 Presence of coronary angioplasty implant and graft; Z82.49 Family history of ischemic heart disease and other diseases of the circulatory system; V53.5XXA Driver of pick-up truck or van injured in collision with car, pick-up truck or van in traffic accident, initial encounter; Y92.410 Unspecified street and highway as the place of occurrence of the external cause
CPT/HCPCS: 70450; 93005; 99284